=== PATIENT | male | born 1955 | race Caucasian/White ===

== ENCOUNTER 2016-12-03 07:18 | Emergency (ER) | payer BC ==
[~2016-12-03] VITALS: Ht 177.8 cm; Wt 72.2 kg
[~2016-12-03 07:18] MED LIST: ALPRAZOLAM0.25 M2 PO; ASPIRIN325 MG PO; BACTRIM,SEPT1 TABLET PO; CALCIUM 600 +1 EACH PO; CALCIUM 600+D1 EACH PO; CARVEDILOL6.25 MG PO; CEFUROXIME500 MG PO; CLONAZEPAM0.5 MG PO; ERYTHROMYC1 APPLICAT LEFT EYE; FERREX 150150 MG PO; FISH OIL 1,2001 EAC4 PO; FLONASE16 G1 BOTH NARES; GEMFIBROZIL600 MG PO; LANSOPRAZOLE30 MG PO; LISINOPRIL20 MG PO; LORAZEPAM0.5 MG PO; MULTIVITAMIN1 EAC2 PO; NASAL SPRAY45 ML NS; NORVASC10 MG PO; OXECTA7.5 MG PO; OXYCODONE HCL5 MG PO; OXYCODONE-ACET1 EAC3 PO; OXYCODONE-APAP1 EAC7 PO; PENTASA250 MG PO; PROPRANOLOL HCL60 M1 PO; PROPRANOLOL HCL60 MG PO; ROCEPHIN2 GM/50 ML IV; ZESTRIL20 MG PO; [UNRECOGNIZED DRUG - CODE]
[2016-12-03 07:50] LABS: HEMATOCRIT 31.1 % (38.0-50.0); MCH 30.2 PG (29.0-34.0); MCHC 34.4 G/DL (30.0-36.0); MCV 87.9 FL (86-99); MEAN PLAT.VOLUME 9.3 uM^3 (9.0-12.4); PLATELET COUNT 172 K/uL (156-360); RBC DIS.WIDTH-CV 13.4 % (11.8-14.6); RBC DIS.WIDTH-SD 42.8 % (39-53); RED BLOOD COUNT 3.54 M/uL (4.00-5.50); WHITE BLOOD COUNT 4.4 K/uL (4.1-10.2)
[2016-12-03 08:04] LABS: CHLORIDE 104 mEq/L (99-109); D-DIMER ELISA 0.31 mg/L FEU (< 0.57); POTASSIUM 5.3 mEq/L (3.7-5.4); SODIUM 135 mEq/L (136-147)
[2016-12-03 08:06] LABS: GLUCOSE 100 mg/dL (70-99)
[2016-12-03 08:07] LABS: ANION GAP 12 MEQ/L (2-14)
[2016-12-03 08:09] LABS: GFR ESTIMATE (CALCULATED) 27 mL/min/
[2016-12-03 08:10] LABS: UREA NITROGEN (BUN) 31 mg/dL (9-23)
[2016-12-03 08:17] LABS: TROP-I INTERPRETATION NEGATIVE; TROPONIN-I < 0.01 ng/mL (0.0-0.30)
[2016-12-03] MEDS ORDERED: ZOFRAN ODT4 MG PO (09:50)
[2016-12-03 10:00] VITALS: BP 157/91
[2016-12-21] MEDS ORDERED: FERREX 150150 MG PO (17:25)
[2016-12-21] MEDS ORDERED: PREVACID30 MG PO (17:25)
[2016-12-21] MEDS ORDERED: PERCOCET 7.51 TABLET PO (17:26)
== END 2016-12-03 10:04 | disposition home or self-care (01) ==
LOC: EME 07:18
PROVIDERS: Emergency Medicine
DX: R51 Headache (principal); G47.00 Insomnia, unspecified; I10 Essential (primary) hypertension; E78.5 Hyperlipidemia, unspecified; I25.2 Old myocardial infarction
CPT/HCPCS: 71010; 80048; 84484; 85027; 85379; 93005; 99281; 99285; J2060; J2405; J7030

== ENCOUNTER 2016-12-07 10:57 | Inpatient (IN) | payer BC ==
[~2016-12-07] VITALS: Ht 177.8 cm; Wt 70.0 kg
[~2016-12-07 10:57] MED LIST changes: +ZOFRAN ODT4 MG PO
[2016-12-07 12:01] LABS: HEMATOCRIT 27.2 % (38.0-50.0); MCHC 33.5 G/DL (30.0-36.0); MCV 89.8 FL (86-99); MEAN PLAT.VOLUME 9.9 uM^3 (9.0-12.4); PLATELET COUNT 190 K/uL (156-360); RBC DIS.WIDTH-CV 14.2 % (11.8-14.6); RBC DIS.WIDTH-SD 45.8 % (39-53); RED BLOOD COUNT 3.03 M/uL (4.00-5.50); WHITE BLOOD COUNT 3.6 K/uL (4.1-10.2)
[2016-12-07 12:17] LABS: CHLORIDE 108 mEq/L (99-109); POTASSIUM 4.4 mEq/L (3.7-5.4); SODIUM 141 mEq/L (136-147)
[2016-12-07 12:19] LABS: GLUCOSE 115 mg/dL (70-99)
[2016-12-07 12:20] LABS: ANION GAP 13 MEQ/L (2-14)
[2016-12-07 12:27] LABS: ADD MIUA? YES; BILIRUBIN NEGATIVE; BLOOD SMALL; COLOR YELLOW ((YELLOW)); GLUCOSE (STRIP) NEGATIVE; KETONES NEGATIVE; LEUKOCYTES NEGATIVE; NITRITE NEGATIVE; PROTEIN (STRIP) 100; SPECIFIC GRAVITY 1.016 (1.000-1.030); UROBILINOGEN 0.2 MG/DL (0.2-1.0)
[2016-12-07 12:39] LABS: BACTERIA NONE SEEN /HPF; EPITHELIAL CELLS RARE /HPF; MUCUS TRACE /LPF; UCUL ADDED? NO; WHITE BLOOD CELLS 0-5 /HPF (0-5)
[2016-12-07 12:51] LABS: TOTAL BILIRUBIN 0.2 mg/dL (0.0-1.0)
[2016-12-07 12:52] LABS: ALKALINE PHOSPHATASE 46 IU/L (3-129); GFR ESTIMATE (CALCULATED) 21 mL/min/
[2016-12-07 12:53] LABS: UREA NITROGEN (BUN) 41 mg/dL (9-23)
[2016-12-07 12:54] LABS: DIRECT BILIRUBIN 0.1 mg/dL (0.0-0.3)
[2016-12-07 12:55] LABS: LIPASE 47 U/L (1.0-51.0)
[2016-12-07] MEDS ORDERED: CLONAZEPAM1 MG PO ×2 (16:28→17:09)
[2016-12-07] MEDS ORDERED: PERCOCET 7.51 TABLET PO (16:28)
[2016-12-07] MEDS ORDERED: CEFTIN500 MG PO (16:29)
[2016-12-07] MEDS ORDERED: LANSOPRAZOLE30 MG PO (16:30)
[2016-12-07] MEDS ORDERED: CEFTRIAXONE2 G1 IV (16:30)
[2016-12-07] MEDS ORDERED: [UNRECOGNIZED DRUG - CODE] IV (17:12)
[2016-12-07 19:37] VITALS: BP 172/91
[2016-12-08 00:25] VITALS: BP 140/78
[2016-12-08 04:16] VITALS: BP 119/65
[2016-12-08 08:09] VITALS: BP 135/77
[2016-12-08 08:17] LABS: HEMATOCRIT 25.2 % (38.0-50.0); MCH 30.3 PG (29.0-34.0); MCHC 33.3 G/DL (30.0-36.0); MEAN PLAT.VOLUME 9.9 uM^3 (9.0-12.4); PLATELET COUNT 176 K/uL (156-360); RBC DIS.WIDTH-CV 14.1 % (11.8-14.6); RBC DIS.WIDTH-SD 45.9 % (39-53); RED BLOOD COUNT 2.77 M/uL (4.00-5.50); WHITE BLOOD COUNT 3.1 K/uL (4.1-10.2)
[2016-12-08 08:34] LABS: ANION GAP 10 MEQ/L (2-14); CHLORIDE 108 MEQ/L (99-109); GFR ESTIMATE (CALCULATED) 23 mL/min/; SAMPLE HEMOLYSIS CHECK 1; SAMPLE ICTERIC CHECK 0; SAMPLE LIPEMIA CHECK 0; SODIUM 139 MEQ/L (136-147); UREA NITROGEN (BUN) 37 mg/dL (9-23)
[2016-12-08 08:35] LABS: GLUCOSE 75 mg/dL (70-99)
[2016-12-08 15:34] VITALS: BP 109/59
[2016-12-08 19:40] VITALS: BP 131/69
[2016-12-08 23:41] VITALS: BP 118/59
[2016-12-09 02:45] VITALS: BP 132/63
[2016-12-09 08:10] LABS: ANION GAP 9 MEQ/L (2-14); CHLORIDE 113 MEQ/L (99-109); GFR ESTIMATE (CALCULATED) 25 mL/min/; GLUCOSE 80 mg/dL (70-99); SAMPLE HEMOLYSIS CHECK 0; SAMPLE ICTERIC CHECK 0; SAMPLE LIPEMIA CHECK 0; SODIUM 141 MEQ/L (136-147); UREA NITROGEN (BUN) 36 mg/dL (9-23)
[2016-12-09 08:45] VITALS: BP 178/84
[2016-12-09 10:27] LABS: POINT-OF-CARE METER ID UU14162513
[2016-12-09 15:31] VITALS: BP 143/81
[2016-12-09 19:20] VITALS: BP 132/70
[2016-12-09 23:52] VITALS: BP 132/75
[2016-12-10 03:50] VITALS: BP 143/69
[2016-12-10 08:10] VITALS: BP 172/96
[2016-12-10 09:04] LABS: ANION GAP 11 MEQ/L (2-14); CHLORIDE 109 MEQ/L (99-109); GFR ESTIMATE (CALCULATED) 32 mL/min/; GLUCOSE 76 mg/dL (70-99); POTASSIUM 4.7 MEQ/L (3.7-5.4); SAMPLE HEMOLYSIS CHECK 0; SAMPLE ICTERIC CHECK 0; SAMPLE LIPEMIA CHECK 0; SODIUM 140 MEQ/L (136-147); UREA NITROGEN (BUN) 28 mg/dL (9-23)
[2016-12-10] MEDS ORDERED: OXYCODONE-APAP1 EACH PO (10:32)
[2016-12-10 11:38] VITALS: BP 135/73
[2016-12-10 12:27] LABS: EOSINOPHIL (%) 0 % (0-5); HEMATOCRIT 25.5 % (38.0-50.0); IMMATURE GRANULOCYTE (%) 1.3 % (0.0-0.7); INSTRUMENT ABS NEUTROPHIL CT 2.3 K/uL; LYMPHOCYTE COUNT 0.4 K/uL (1.0-2.8); MCH 30.8 PG (29.0-34.0); MCHC 34.5 G/DL (30.0-36.0); MCV 89.2 FL (86-99); MONOCYTE COUNT 0.4 K/uL (0-0.8); NEUTROPHIL (%) 72.1 % (45-76); NEUTROPHIL COUNT 2.3 K/uL (1.8-6.4); PLATELET COUNT 158 K/uL (156-360); RBC DIS.WIDTH-CV 14.1 % (11.8-14.6); RBC DIS.WIDTH-SD 45.5 % (39-53); RED BLOOD COUNT 2.86 M/uL (4.00-5.50); WHITE BLOOD COUNT 3.2 K/uL (4.1-10.2)
== END 2016-12-10 15:17 | disposition home health service (06) | DRG 669 ==
LOC: EME 10:57 → EDOF 16:54 → 5WEST 19:18
PROVIDERS: Hospitalist; Internal Medicine; Nurse Practitioner Family; Urology
DX: N13.2 Hydronephrosis with renal and ureteral calculous obstruction (principal); K90.81 Whipple's disease; I12.9 Hypertensive chronic kidney disease with stage 1 through stage 4 chronic kidney disease, or unspecified chronic kidney disease; N17.9 Acute kidney failure, unspecified; E78.5 Hyperlipidemia, unspecified; I25.10 Atherosclerotic heart disease of native coronary artery without angina pectoris; Z87.891 Personal history of nicotine dependence; D64.9 Anemia, unspecified; N18.4 Chronic kidney disease, stage 4 (severe)
CPT/HCPCS: 71010; 74176; 74420; 80048; 80076; 81003; 82365 90; 82948; 83690; 85025; 85027; 93005; 99281; 99283; C1769; C1876; G0378; J0360; J0690; J0696; J1100; J1170; J1650; J1885; J2250; J2270; J2405; J3010; J7030; J7050; J7120

== ENCOUNTER 2017-10-12 23:01 | Emergency (ER) | payer BC ==
[~2017-10-12] VITALS: Ht 177.8 cm; Wt 76.6 kg
[~2017-10-12 23:01] MED LIST changes: +CEFTIN500 MG PO; +CEFTRIAXONE2 G1 IV; +CLONAZEPAM1 MG PO; +OXYCODONE-APAP1 EACH PO; +PERCOCET 7.51 TABLET PO; +PREVACID30 MG PO; +[UNRECOGNIZED DRUG - CODE] IV
[2017-10-12 23:46] LABS: ALBUMIN 4.3 g/dL (3.2-4.8); CHLORIDE 108 mEq/L (99-109); POTASSIUM 4.9 mEq/L (3.7-5.4); SODIUM 138 mEq/L (136-147)
[2017-10-12 23:47] LABS: HEMATOCRIT 27.9 % (38.0-50.0); HEMOGLOBIN 9.9 G/DL (12.5-16.6); MCH 34.1 PG (29.0-34.0); MCHC 35.5 G/DL (30.0-36.0); PLATELET COUNT 224 K/uL (156-360); RBC DIS.WIDTH-CV 12.3 % (11.8-14.6); RBC DIS.WIDTH-SD 42.8 % (39-53)
[2017-10-12 23:48] LABS: GLUCOSE 116 mg/dL (70-99)
[2017-10-12 23:49] LABS: TOTAL PROTEIN 7.8 g/dL (6.4-8.3)
[2017-10-12 23:50] LABS: TOTAL BILIRUBIN 0.3 mg/dL (0.0-1.0)
[2017-10-12 23:52] LABS: ALKALINE PHOSPHATASE 57 IU/L (3-129); CREATININE 2.9 mg/dL (0.6-1.3); GFR ESTIMATE (CALCULATED) 23 mL/min/ (58.99-99999); MCV 96.2 FL (86-99)
[2017-10-12 23:53] LABS: UREA NITROGEN (BUN) 35 mg/dL (9-23)
[2017-10-12 23:54] LABS: AST (GOT) 31 IU/L (2-34)
[2017-10-12 23:55] LABS: ALT (GPT) 20 IU/L (3-49)
[2017-10-12 23:56] LABS: LIPASE 66 U/L (1.0-51.0)
[2017-10-13 00:26] LABS: APPEARANCE CLEAR ((CLEAR)); BILIRUBIN NEGATIVE; BLOOD SMALL; COLOR YELLOW ((YELLOW)); GLUCOSE (STRIP) NEGATIVE; KETONES NEGATIVE; LEUKOCYTES NEGATIVE; NITRITE NEGATIVE; PROTEIN (STRIP) 100; SPECIFIC GRAVITY 1.017 (1.000-1.030); UROBILINOGEN 0.2 MG/DL (0.2-1.0)
[2017-10-13 00:38] LABS: BACTERIA NONE SEEN /HPF; EPITHELIAL CELLS NONE SEEN /HPF; HYALINE CASTS 0-5 /LPF; MUCUS TRACE /LPF; RED BLOOD CELLS 20-30 /HPF (0-5); UCUL ADDED? NO; WHITE BLOOD CELLS 0-5 /HPF (0-5)
[2017-10-13] MEDS ORDERED: PERCOCET 5/31 TABLET PO (01:47)
[2017-10-13 02:08] VITALS: BP 155/91
== END 2017-10-13 02:15 | disposition home or self-care (01) ==
LOC: EME 23:01
DX: N20.0 Calculus of kidney (principal); E78.5 Hyperlipidemia, unspecified; K21.9 Gastro-esophageal reflux disease without esophagitis; I12.9 Hypertensive chronic kidney disease with stage 1 through stage 4 chronic kidney disease, or unspecified chronic kidney disease; N18.9 Chronic kidney disease, unspecified; I25.2 Old myocardial infarction; F41.9 Anxiety disorder, unspecified; Z90.49 Acquired absence of other specified parts of digestive tract; Z87.442 Personal history of urinary calculi; Z79.82 Long term (current) use of aspirin; Z88.8 Allergy status to other drugs, medicaments and biological substances
CPT/HCPCS: 74176; 80053; 81003; 83690; 85027; 99281; 99285; J2270; J2405; J7030